=== PATIENT | male | born 1995 | race Two or more races ===

== ENCOUNTER 2019-09-18 08:08 | Emergency (ER) | payer OTHER ==
[~2019-09-18] VITALS: Ht 185.4 cm; Wt 82.6 kg
[2019-09-18 08:11] VITALS: BP 130/84; Ht 185.4 cm; Wt 82.6 kg
== END 2019-09-18 09:20 | disposition home or self-care (01) ==
LOC: ED 08:08
DX: S61.211A Laceration without foreign body of left index finger without damage to nail, initial encounter (principal); W45.8XXA Other foreign body or object entering through skin, initial encounter; Y93.89 Activity, other specified; Y92.098 Other place in other non-institutional residence as the place of occurrence of the external cause; Y99.8 Other external cause status
CPT/HCPCS: 90715; J2001

== ENCOUNTER 2019-09-20 11:10 | Emergency (ER) | payer OTHER ==
[~2019-09-20] VITALS: Ht 185.4 cm; Wt 81.2 kg
[2019-09-20 11:18] VITALS: BP 123/77; Ht 185.4 cm; Wt 81.2 kg
== END 2019-09-20 12:13 | disposition home or self-care (01) ==
LOC: ED 11:10
DX: S61.211D Laceration without foreign body of left index finger without damage to nail, subsequent encounter (principal); X58.XXXD Exposure to other specified factors, subsequent encounter

== ENCOUNTER 2019-09-26 07:51 | Emergency (ER) | payer OTHER ==
[~2019-09-26] VITALS: Ht 185.4 cm; Wt 81.6 kg
[2019-09-26 08:03] VITALS: BP 123/76; Ht 185.4 cm; Wt 81.6 kg
== END 2019-09-26 08:33 | disposition home or self-care (01) ==
LOC: ED 07:51
DX: S61.211D Laceration without foreign body of left index finger without damage to nail, subsequent encounter (principal); X58.XXXD Exposure to other specified factors, subsequent encounter